=== PATIENT | male | born 1965 | race Caucasian/White ===

== ENCOUNTER → 2017-05-20 | Outpatient (CLI) | payer BC ==
--- NOTE | ~2017-05-20 | ECHO ---
Stress Echocardiography Report Demographics Patient Name UZMA WARD Date of Study 05/20/2017 D Patient Number [id number] Visit Number [id number] Date of 1965 Room Number Gender Male Number Age 52 year(s) Referring Mari Strange MD Traffic Circuit Engineer [employer] RVT, Physician RDCS Ellen Cm RDCS, RVT Physician Interpreting Mari Strange MD Butadiene Compressor Operator Physician Supervising Lc Khan Ordering Mari Strange MD, MD/MLP SET AND EXHIBIT DESIGNER Physician Nurse Alex Kat RN Stress Medical Science Liaison Conclusions Summary Resting images demonstrate overall normal left ventricular systolic function. Peak stress echo images demonstrates inducible hypokinesis of the proximal and mid anterior wall. Findings consistent with possible ischemia. Procedure Type of Study Stress procedure:Treadmill Stress Echo w/o Contrast. Procedure Date Date: 05/20/2017 Start: 10:45 AM Study Location: Echo Lab Technical Quality: Adequate visualization Indications:Chest discomfort. Additional Indications:No complaints of increased chest pain. Was able to carry on a conversation with peak exercise. Appropriate Use Criteria: 9 Patient Status: Routine HR: 110 bpm BP: 149/86 mmHg Risk Factors - The patient's risk factor(s) include: dyslipidemia and arterial hypertension. - The patient is on hormone therapy. Rest ECG Sinus bradycardia. Resting HR:65 bpmResting BP:149/86 mmHg Pre-Stress Physical Exam Complains of constant chest pain currently. Complains of Headache currently. No radiation of the pain Stress Peak HR: 144 bpm HR Response: Appropriate Peak BP: 164/76 mmHg BP Response: Appropriate Predicted HR: 168 bpm HR BP Product: [id number] % of predicted HR: 86 Max Exercise: 10.4 METS Test Duration: 10:00 min10:00 min Reason for Termination: Target heart rate Exercise Effort: Excellent Perceived Exertion: 8 Results ECG Sinus tachycardia. ST depression II, III, AVF. 1 mmHg Arrhythmias None Symptoms Constant chest pain. Does not increase with exercise. DTS = +5 Mild shortness of breath. Supervision Angela Platt APRN Contractility Score Rest LV regional wall motion:(0-Non visualized 1-Normal 2-Hypokinesis 3-Akinesis 4-Dyskinesis 5-Aneurysm) Signature dtt: Alexandr Guerra (cardio) dtd: 05/20/17 1045 Physician Self Edit
== END | disposition disaster alternative care site (69) ==
LOC: GCAR 09:48
DX: R07.89 Other chest pain (principal); E78.5 Hyperlipidemia, unspecified; I10 Essential (primary) hypertension